=== PATIENT | male | born 1945 | race Caucasian/White ===

== ENCOUNTER 2020-12-24 10:05 | Outpatient (CLI) | payer MEDICARE, SELFPAY ==
--- NOTE | ~2020-12-24 | US_ITS ---
EXAMINATION: US aorta [facility] DATE: 12/24/2020 11:04 INDICATION: Abdominal aortic aneurysm screening. TECHNIQUE: Grayscale, color Doppler, and pulsed Doppler images of the aorta and common iliac arteries were obtained. COMPARISON: None. FINDINGS: The aorta is normal in caliber. The right common iliac artery is normal in caliber. The left common i liac artery is normal in caliber. IMPRESSION: 1. No abdominal aortic aneurysm. Reviewed, dictated and finalized at location B.
== END 2020-12-24 10:06 | disposition home or self-care (01) ==
PROVIDERS: PCP Internal Medicine; Visit Provider Internal Medicine
DX: Z87.891 Personal history of nicotine dependence (principal)
CPT/HCPCS: 76706

== ENCOUNTER 2021-01-25 18:17 | Emergency (ER) | payer MEDICARE, SELFPAY ==
--- NOTE | ~2021-01-25 | XR_ITS ---
EXAMINATION: XR knee RT min 4V DATE: 01/25/2021 18:38 INDICATION: Right knee pain TECHNIQUE: Four views of the right knee were obtained. COMPARISON: None. FINDINGS: Alignment is normal. No fracture or osteochondral lesion. There is mild tricompartmental os teoarthritis characterized by tiny marginal osteophytes. There is a moderate size knee joint effusion . Soft tissues are unremarkable. IMPRESSION: 1. Moderate size knee joint effusion. Reviewed, dictated and finalized at location A.
[2021-01-25 18:18] VITALS: BP 142/76; PULSE 80; RESP 20; TEMP 36.3; O2SAT 97
--- NOTE | 2021-01-25 18:31 | ED.GENADULT ---
HPI - General Adult General Chief complaint: Extremity Injury, Lower Stated complaint: right knee pain Time Seen by Provider: 01/25/21 18:24 Source: patient, family and RN notes reviewed Mode of arrival: ambulatory Limitations: no limitations History of Present Illness HPI narrative: Patient is 75-year-old male who presents to emergency department for evaluation of right knee pain and swelling that occurred over the last 3 days patient denies injury or trauma or similar occurrence in the past has been using crutches has not taken anything for his symptoms denies fever or other complaints Related Data Allergies Allergy/AdvReac Type Severity Reaction Status Date / Time No Known Allergies Allergy Verified 01/25/21 18:22 Review of Systems Review of Systems: All systems reviewed & are unremarkable except as noted in HPI and below PMFSH Past Medical History Medical History Alcohol dependence in controlled environment (~1953) Class 2 obesity with body mass index (BMI) of 36.0 to 36.9 in adult (~09/07/88) Hyperlipidemia LDL goal <100 (~04/2015) Hyperuricemia (~04/2015) Hypothyroidism (acquired) (~04/2015) Keratosis seborrheica (~09/2016) Knee osteoarthritis (~09/2017) Tobacco abuse, in remission (~1953) Surgical History Surgical History No history of previous surgery Family History Family History Father Cerebrovascular accident, Onset Age: 69 Alcoholism Skin cancer Sibling Alcoholism Skin cancer Hypertension Heart problem Unknown Lung cancer Thyroid disorder Social History Social History Smoking packs per day: 1 Smoking cigarettes per day: 20.0 Years smoked: 40 Smoking pack-years: 40.00 Second hand tobacco smoke exposure: No Smoking end date: 09/06/89 Alcohol intake: current Drinks per week: 30 Exam Narrative: Exam Narrative: GENERAL: Well-appearing, well-nourished, and in no acute distress. HEAD: Normocephalic, atraumatic. EYES: PERRLA and EOMI. ENT: Nares clear, no rhinorrhea or epistaxis. Mucous membranes moist. EXTREMITIES: Swelling and tenderness of the right knee joint along the anterior medial and posterior aspect no erythema or warmth to touch remainder of extremity nontender SKIN: Warm, dry, no rash. NEURO: No focal deficits. Alert and oriented x3. Neurovascularly intact. Capillary refill less than 2 seconds PSYCH: Normal mood and affect. Course Vital Signs Vital signs: Vital Signs Temperature 97.4 F L 01/25/21 18:18 Pulse Rate 80 01/25/21 18:18 Respiratory Rate 20 01/25/21 18:18 Blood Pressure 142/76 H 01/25/21 18:18 Pulse Oximetry 97 01/25/21 18:18 Temperature 97.4 F L 01/25/21 18:18 Pulse Rate 80 01/25/21 18:18 Respiratory Rate 20 01/25/21 18:18 Blood Pressure 142/76 H 01/25/21 18:18 Pulse Oximetry 97 01/25/21 18:18 Medical Decision Making MDM Narrative Medical decision making narrative: Patients injury or pain is consistent with musculoskeletal etiology. No signs of neurological or vascular compromise on exam. Compartments and tisues are soft without signs of compartment syndrome. Pain is felt appropriate for further evaluation on an outpatient basis. Vital Signs Vital Signs: Vital Signs Temperature 97.4 F L 01/25/21 18:18 Pulse Rate 80 01/25/21 18:18 Respiratory Rate 20 01/25/21 18:18 Blood Pressure 142/76 H 01/25/21 18:18 Pulse Oximetry 97 01/25/21 18:18 Temperature 97.4 F L 01/25/21 18:18 Pulse Rate 80 01/25/21 18:18 Respiratory Rate 20 01/25/21 18:18 Blood Pressure 142/76 H 01/25/21 18:18 Pulse Oximetry 97 01/25/21 18:18 Imaging Data Radiologist's impression: ITS Impressions Knee X-Ray 01/25/21 18:52 IMPRESSION: 1. Moderate size knee joint e
[2021-01-25 19:51] VITALS: BP 138/71; PULSE 72; RESP 18; O2SAT 97
== END 2021-01-25 19:51 | disposition home or self-care (01) ==
PROVIDERS: Emergency Provider Emergency Medicine; PCP Internal Medicine
DX: M25.561 Pain in right knee (principal); E78.5 Hyperlipidemia, unspecified; E03.9 Hypothyroidism, unspecified; E66.9 Obesity, unspecified; Z68.34 Body mass index [BMI] 34.0-34.9, adult; Z87.891 Personal history of nicotine dependence; M17.11 Unilateral primary osteoarthritis, right knee
CPT/HCPCS: 73564; 99283

== ENCOUNTER 2021-01-29 08:38 | Outpatient (CLI) | payer MEDICARE, SELFPAY ==
--- NOTE | 2021-02-12 15:08 | WPDHOMESLEEP ---
Sleep Study - Home Unattended Date of Study: 01/29/21 Ordering Provider: Deon Garcia MD Interpreting Provider: Berta Colón MD Home Sleep Study Type: Apnea Link Air Height: 2.03 m Weight: 104.326 kg Body Mass Index: 25.2 Neck Circumference (inches): 17 [place]: 10 Reason for Sleep Study non- restorative sleep, hypersomnia; Sleep History Sukh Liao is a 75 year old man with hypertension, impaired fasting glucose, hypothyroidism, gout and hyperlipidemia. He is a smoker. He has hypersomnia. His tells him that he snores and occasionally stops breathing at night. He is tired in the day and can easily fall asleep. For this reason, Dr. Garcia ordered for a home sleep test. The patient does not awaken from sleep feeling short of breath and does not awaken at night with heartburn, belching or coughing. He frequently snores. Rarely he snores loudly enough that others complain about it. He occasionally has trouble sleeping with a cold. He does not wake up gasping for breath at night, does not have breathing problems at night observed by others and does not sweat excessively at night. He does not notice his heart pounding or beating irregularly night. He occasionally falls asleep during the day, never falls asleep involuntarily and never falls asleep while driving. He does not fall asleep while exerting physical effort. He does not have loss of muscle tone was strong emotion. He does not have daytime difficulties due to excessive sleepiness. He does not feel paralyzed on waking or falling asleep. He occasionally has vivid dreamlike scenes upon awakening or falling asleep. He does not ever feel afraid to go to sleep. He occasionally has nightmares. He frequently remembers his dreams. He occasionally has racing thoughts. He does not feel sad or depressed. He occasionally has anxiety and occasionally has muscular tension. He does not notice parts of his body jerking. He rarely kicks at night. He frequently has crawling and aching feelings in his legs and frequently has leg pain during the night. He does not have morning jaw pain and does not grind his teeth during sleep. He occasionally is bothered by pain during the day. He rarely is awakened by pain at night. He rarely wakes up feeling stiff in the morning. He does not wake up with sore or achy muscles and does not wake up with pain in the neck and spine. He has insomnia. Normal bedtime is 10:00 p.m. falling asleep within 30 minutes, typically waking twice at night to urinate, returning to sleep within 15 minutes. He wakes the morning at 6:00 a.m.. His weekend schedule is the same. He estimates getting 6 hours of sleep at night. He takes naps in the afternoon or evening sometimes. Sometimes, a short nap is refreshing. He feels good most mornings. He feels better in the morning compared other times of day. Habits: Quit tobacco 25 years ago. Caffeine 2 cups of coffee per day. Alcohol 3 beers per day. No recreational drugs. [facility] Past Medical History Medical History (Updated 02/12/21 @ 15:29 by Berta Colón MD) Alcohol dependence in controlled environment (~1953) Class 2 obesity with body mass index (BMI) of 36.0 to 36.9 in adult (~09/07/88) Dyslipidemia Essential hypertension Hyperlipidemia LDL goal <100 (~04/2015) Hyperuricemia (~04/2015) Hypothyroidism (acquired) (~04/2015) Keratosis seborrheica (~09/2016) Knee osteoarthritis (~09/2017) Prediabetes (~04/2015) Tobacco abuse, in remission (~1953) Surgical History Surgical History No history of previous surgery Family History Family History Father Cerebrovascular accident, Onset Age: 69 Alcoholism Skin cancer Sibling Alcoholism Skin cancer Hypertension Heart problem Unknown Lung cancer Thyroid disorder Social History Social History (Reviewed 01/25/21 @ 18:32
[2021-02-12 15:32] VITALS: BMI 25.2
== END 2021-01-30 10:25 | disposition home or self-care (01) ==
LOC: ANHCSM 08:39
PROVIDERS: PCP Internal Medicine; Visit Provider Internal Medicine
DX: G47.33 Obstructive sleep apnea (adult) (pediatric) (principal)
CPT/HCPCS: 95806

== ENCOUNTER 2021-01-29 12:24 | Outpatient (NON) | payer MEDICARE, SELFPAY ==
[2021-01-29 14:32] LABS: Appearance Synovial Fluid Cloudy (Clear); Color Synovial Fluid Yellow (Colorless); Neutrophils Synovial Fluid 73 % (0-25); Nucleated Cell Synovial Fluid 4616 /uL (0-200); RBC Synovial Fluid 2601 /uL (0-0); Source Synovial Fluid Synovial fluid
[2021-01-29 14:33] LABS: Lymphocytes Synovial Fluid 21 %; Monocytes Synovial Fluid 6 %
== END 2021-01-29 12:25 | disposition home or self-care (01) ==
PROVIDERS: PCP Internal Medicine; Visit Provider Orthopaedic Surgery
DX: M25.561 Pain in right knee (principal)
CPT/HCPCS: 87070; 87075; 87205; 89051; 89060; 95806

== ENCOUNTER → 2021-02-04 11:02 | Outpatient (REF) | payer MEDICARE, SELFPAY | LOC: ANHLAB 11:02 | PROVIDERS: PCP Internal Medicine; Visit Provider Nurse Practitioner | DX: L98.9 Disorder of the skin and subcutaneous tissue, unspecified (principal) | CPT/HCPCS: 88305 ==

== ENCOUNTER → 2021-11-25 10:44 | Outpatient (CLI) | payer MEDICARE, SELFPAY ==
--- NOTE | ~2021-11-25 | XR_ITS ---
XR lumbar spine 6V w bending 11/25/2021 11:23 Indication: Low back pain Procedure: 7 views lumbar spine Comparison: No prior studies for comparison. Findings: There is disc narrowing at all lumbar levels except L3-4. There is lower lumbar facet hyper trophy. No acute fracture or traumatic malalignment. No significant alteration of alignment with flex ion/extension. Pedicles intact. Sacral foramen are symmetric. Impression: 1: Moderate lumbar spondylosis. Reviewed, dictated and finalized at location A. Impression: 1: Moderate lumbar spondylosis.
== END ==
PROVIDERS: Visit Provider Internal Medicine
DX: M54.30 Sciatica, unspecified side (principal); M47.816 Spondylosis without myelopathy or radiculopathy, lumbar region
CPT/HCPCS: 72114

== ENCOUNTER 2024-08-08 08:32 | Outpatient (CLI) | payer MEDICARE, SELFPAY ==
--- NOTE | 2024-08-08 09:13 | ECHO_ITS ---
Patient Info Name: Sukh Liao Age: 79 years : 1945 Gender: Male Ht: 68 in Wt: 205 lbs BSA: 2.14 m2 HR: 55 bpm BP: 149 / 81 mmHg Technical Quality: Good Exam Date: 08/08/2024 9:19 AM Exam Location: Echo Lab Patient Status: Outpatient Admit Date: 08/08/2024 Staff Ordering Physician: Aguilar Krishna MD Respiratory Therapy Aide: Kiet Attending Provider: Aguilar Krishna MD Referring Physician: Tomi KATE; Exam Type: CA echo doppler color flow Study Info Indications I10 - Essential (primary) hypertension Complete two-dimensional, color flow and Doppler transthoracic echocardiogram is performed. Summary 1. Complete two-dimensional, color flow and Doppler transthoracic echocardiogram is performed. 2. Left ventricular chamber dimension is normal. 3. Left ventricular systolic function is normal, estimated at 60-65%. 4. The left ventricular diastolic function is normal. 5. E/e' 9 is minimally elevated. 6. There is mild aortic valve sclerosis. 7. There is trace aortic valve regurgitation. 8. There is trace tricuspid valve regurgitation. 9. No pulmonary hypertension, estimated pulmonary arterial systolic pressure is 20 mmHg. Left Ventricle E/e' 9 is minimally elevated. Left ventricular chamber dimension is normal. Left ventricular systolic function is normal, estimated at 60-65%. The left ventricular diastolic function is normal. Right Ventricle Right ventricular systolic function is normal and with normal TAPSE 1.8 cm. Right ventricular chamber dimension is normal. Left Atria Left atrial chamber dimension is normal. Right Atria Right atrial chamber dimension is normal. Aortic Valve The aortic valve is trileaflet. There is mild aortic valve sclerosis. There is no aortic valve stenosis. There is trace aortic valve regurgitation. Pulmonic Valve There is no pulmonic regurgitation. Mitral Valve There is no mitral valve stenosis. There is no mitral valve regurgitation. Tricuspid Valve There is trace tricuspid valve regurgitation. No pulmonary hypertension, estimated pulmonary arterial systolic pressure is 20 mmHg. Pericardium/Pleural There is no pericardial effusion. Inferior Vena Cava Normal inferior vena cava with >50% collapse upon inspiration consistent with normal right atrial pressure, 5 mmHg. Aorta The aortic root size at the sinus of Valsalva is normal. Left Ventricular Outflow Tract Name Value Normal LVOT 2D LVOT Diameter 2.0 cm LVOT Doppler LVOT Peak Gradient 5 mmHg LVOT Mean Gradient 2 mmHg LVOT VTI 26 cm LVOT VTI/AV VTI Ratio 0.9 LVOT Stroke Volume 79 ml LVOT CO 4.2 l/min LVOT CI 2.0 l/min/m2 Pulmonic Valve Name Value Normal PV Doppler PV Peak Gradient 4 mmHg Mitral Valve Name Value Normal MV Doppler MV Decel [place] 264 cm/s2 MV PHT 92 ms MV Area (PHT) 2.4 cm2 4.0-5.0 MV Diastolic Function MV E Peak Velocity 84 cm/s MV A Peak Velocity 76 cm/s MV E/A 1.1 MV Decel Time 318 ms Tricuspid Valve Name Value Normal TV Regurgitation Doppler TR Peak Velocity 197 cm/s TR Peak Gradient 15 mmHg Estimated PAP/RSVP RA Pressure 5 mmHg <=5 PA Systolic Pressure 20 mmHg <36 RV Systolic Pressure 20 mmHg <36 Aorta Name Value Normal Ascending Aorta Ao Root Diameter (MM) 3.3 cm Ao Root Diam Index (MM) 1.5 cm/m2 Aortic Valve Name Value Normal AV Doppler AV Peak Velocity 135 cm/s AV Peak Gradient 7 mmHg AV Mean Gradient 4 mmHg AV VTI 30 cm AV Area (Cont Eq VTI) 2.6 cm2 >=3.0 AV Area (Cont Eq [place]) 2.5 cm2 AV Regurgitation 2D LVOT Area 3.0 cm2 Ventricles Name Value Normal LV Dimensions 2D/MM IVS Diastolic Thickness (2D) 0.8 cm 0.6-1.0 IVS Diastole Thickness (MM) 0.9 cm 0.6-1.0 LVID Diastole (2D) 5.4 cm 4.2-5.8 LVID Diastole (MM) 5.3 cm 4.2-5.8 LVIW Diastolic Thickness (2D) 0.8 cm 0.6-1.0 LVIW Diastolic Thickness (MM) 0.8 cm 0.6-1.0 LVID Systole (2D) 3.5 cm 2.5-4.0 LVID Systole (MM) 3.1 cm 2.5-4.0 LVOT Diameter 2.0 cm LV Mass (2D Cubed) 155.19 g 88.00-224.00 LV Mass Index (2D Cubed) 73 g/m2 49-115 Relative Wall Thickness (2D) 0.29 LV Mass (MM Cubed) 169.96 g 88.00-224.00 LV Mass Index (MM Cubed) 79 g/m2 49-115 Relative Wall Thickness (MM) 0.32 LV Fractional Shortening/Ejection Fraction 2D/MM LV Fractional Shortening (2D) 36 % 25-43 LV Fractional Shortening (MM) 41 % 25-43 LV EF (MM Teicholz) 71 % 52-72 LV EF (2D Teicholz) 65 % 52-72 LV Diastolic Volume (4C MOD) 80 ml LV EF (4C MOD) 71 % LV Diastolic Volume (2C MOD) 56 ml LV EF (2C MOD) 62 % LV Diastolic Volume (BP MOD) 68 ml 62-150 LV Diastolic Volume Index (BP MOD) 32 ml/m2 34-74 LV Systolic Volume (BP MOD) 23 ml 21-61 LV Systolic Volume Index (BP MOD) 11 ml/m2 11-31 LV EF (BP MOD) 67 % 52-72 LV Diastolic Length (4C) 8.0 cm LV Systolic Length (4C) 6.2 cm LV Stroke Volume (4C MOD) 57 ml Atria Name Value Normal LA Dimensions LA Dimension (MM) 4.3 cm 3.0-4.1 LA Volume (4C A-L) 31 ml LA Volume (BP A-L) 46 ml RA Dimensions RA Area (4C) 17.4 cm2 <=18.0 Report Signatures
== END 2024-08-08 08:33 | disposition home or self-care (01) ==
PROVIDERS: PCP Family Medicine; Visit Provider Family Medicine
DX: E11.9 Type 2 diabetes mellitus without complications (principal); E66.9 Obesity, unspecified; G47.33 Obstructive sleep apnea (adult) (pediatric); I10 Essential (primary) hypertension; R01.1 Cardiac murmur, unspecified; R79.89 Other specified abnormal findings of blood chemistry; Z00.00 Encounter for general adult medical examination without abnormal findings; Z68.36 Body mass index [BMI] 36.0-36.9, adult
CPT/HCPCS: 93306

== ENCOUNTER 2025-04-09 00:47 | Day surgery (SDC) | payer MEDICARE, SELFPAY ==
[2025-03-26 09:47] VITALS: BMI 32.0
--- OUTSIDE RECORDS SUMMARY | 2025-04-09 00:50 | XMS_ITS | Clinical Summary ---
Author Organization [facility] Address [address] [place] [address] Care Team Providers Care Sales Ledger Administrator Name Role Phone Unavailable Primary Care Provider Unavailabl e Source Comments [facility],non-owned Affiliates and Associated Physician Practices is amultiple site organization consisting of ambulatory clinics and hospital sitesin [place], [place], [place] and [place]. This disclosure is being madepursuant to the Care Everywhere program and may not contain all information available regarding this patient. Last updated 18.[facility] Allergies No known active allergies Medications * Be aware that medications may not be up to date on this document. Alwaysverify current medications with the patient. simvastatin (ZOCOR) 40 MG tabletIndication s:HLD (hyperlipidemia) Take 1 Tab by mouth at bedtime. 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 Gender Identity Not on file Sexual Orientation Not on file Last Filed Vital Signs Vital Sign Reading Time Taken Comments Blood Pressure 144/80 02/25/2011 9:05 AM CDT Pulse 64 02/25/2011 9:05 AM CDT Temperature - - Respiratory Rate 12 02/25/2011 9:05 AM CDT Oxygen Saturation - - Inhaled Oxygen Concentration - - Weight 106.1 kg (233 lb 12.8 oz) 02/25/2011 9:05 AM CDT Height 172.7 cm (5' 8) 02/25/2011 9:05 AM CDT Body Mass Index 35.55 02/25/2011 9:05 AM CDT Plan of Treatment Health Maintenance Due Date Last Done Comments DTAP/TDAP/TD VACCINES (1 - Tdap) 1963 PNEUMOCOCCAL VACCINE 50+ (1 of 1 - PCV) 1994 ZOSTER VACCINE (1 of 2) 1994 Respiratory Syncytial Virus (RSV) Vaccine Pt: or over 60 yrs (1 - 1-dose 75+ series) 2019 COVID-19 VACCINE (2023-2 5 season) 2024 DEPRESSION SCREENING 09/06/2024 INFLUENZA VACCINE (#1) 2025 HEPATITIS B VACCINE Aged Out No longe r eligible based on patient's age to complete this topic HIB VACCINE Aged Out No longer eligi ble based on patient's age to complete this topic HPV VACCINE Aged Out No longer eligi ble based on patient's age to complete this topic MENINGOCOCCAL (Group B) VACC INE SHARED DECISION-MAKING Aged Out No longer eligibl e based on patient's age to complete this topic MENINGOCOCCAL GROUPS A/C/Y/W VACCINE Aged Out No longer eligible b ased on patient's age to complete this topic
--- NOTE | 2025-04-09 07:20 | WPDANESEPPF ---
Anes - Initial Pre Proc Eval Procedure: Operation Date: 04/09/25 09:00 Proposed Procedures p Diagnostic Colonoscopy - Sanjay Vidal MD Date/Time: 04/09/25 07:20 Surgeon: Sanjay Vidal MD Pre Op Diagnosis: Other fecal abnormalities Patient Data Age: 79 Gender: M Height: 1.73 m Weight: 95.5 kg Allergies Allergy/AdvReac Type Severity Reaction Status Date / Time No Known Allergies Allergy Verified 04/09/25 07:48 Home Medications ?Medication ?Instructions ?Recorded ?Confirmed ?Type levothyroxine 75 mcg tablet 75 mcg PO DAILY #90 tabs 08/18/24 04/09/25 Rx rosuvastatin 20 mg tablet See Rx Instructions .Route 12/11/24 04/09/25 Rx .COMPLEX #90 tabs cetirizine 10 mg tablet (24Hour 10 mg PO DAILY 03/26/25 03/26/25 History Allergy) [id number]-yhsvusjq-gcgmri tablet 1 tablet PO DAILY 03/26/25 04/09/25 History vitamin E (dl, acetate) 45 mg (100 45 mg PO DAILY 03/26/25 04/09/25 History unit) capsule Patient hx anesthesia problems: none Family hx anesthesia problems: none Results Review: All pre-operative results and documents have been reviewed as part of the pre-operative evaluation. [facility] Past Medical History Medical History Actinic keratosis Essential hypertension Dyslipidemia Alcohol dependence in controlled environment (~1953) Keratosis seborrheica (~09/2016) Tobacco abuse, in remission (~1953) Knee osteoarthritis (~09/2017) Hyperuricemia (~04/2015) Hypothyroidism (acquired) (~04/2015) Hyperlipidemia LDL goal <100 (~04/2015) Class 2 obesity with body mass index (BMI) of 36.0 to 36.9 in adult (~09/07/88) Prediabetes (~04/2015) Surgical History Surgical History No history of previous surgery Family History Family History Father Cerebrovascular accident, Onset Age: 69 Alcoholism Skin cancer Sibling Alcoholism Skin cancer Hypertension Heart problem Unknown Lung cancer Thyroid disorder Social History Social History Smoking packs per day: 1 Smoking cigarettes per day: 20.0 Years smoked: 40 Smoking pack-years: 40.00 Smoking status: Unknown if ever smoked Tobacco type: cigarettes Second hand tobacco smoke exposure: No Smoking end date: 09/06/89 Alcohol intake: current Drinks per week: 30 Alcohol use details: Beer Substance use: never Substance use type: does not use Lack of Transportation: No Lack of Food: Sometimes True Current Housing: I Have Housing Concerned About Future Housing: No Difficulty Paying Gas/Electric Bills: No Difficulty Paying for Meds: No Currently Unemployed: No Education: High School Diploma/GED Difficulty w/ Childcare or Family Care: No Living arrangements: alone Additional living arrangements comments: . this past year from COVID-19 Occupation/Education: retired Spiritual care concerns: No Anes - Eval Final PreProcedure Day of Procedure 04/09/25 07:20 Patient weight: obese Heart: regular rate and rhythm Lungs: clear to auscultation Airway: Mallampati scale class II Neurological: alert and oriented Last oral intake: >/= 8 hours ASA classification: III Emergent: no Anesthetic plan: proceed Anesthesia type and monitoring: general GIVS and standard monitoring Results Review: All pre-operative results and documents have been reviewed as part of the pre-operative evaluation. Informed Consent: The patient's anesthetic plan and its attendant risks and benefits were discussed with the patient/family/POA. Questions were solicited and answers provided to the satisfaction of the patient/family/POA.
[2025-04-09 07:49] VITALS: BP 139/75; PULSE 61; RESP 16; TEMP 36.4; O2SAT 98; BMI 33.1
[2025-04-09] MEDS: LACTATED RINGERS 1,000 ML 150 ML IV CONT (07:58)
--- NOTE | 2025-04-09 08:43 | PM.IMHP ---
H&P: HPI History of Present Illness Date/Time: 04/09/25 08:44 Chief Complaint: Positive Cologuard test Narrative: patient referred for colonoscopy after finding a Cologuard positive test. His last colonoscopy was more than 10 years ago. There is no family history of colorectal cancer. Review of Systems Review of Systems: All systems reviewed & are unremarkable except as noted in HPI and below PMFSH Past Medical History Medical History Actinic keratosis Essential hypertension Dyslipidemia Alcohol dependence in controlled environment (~1953) Keratosis seborrheica (~09/2016) Tobacco abuse, in remission (~1953) Knee osteoarthritis (~09/2017) Hyperuricemia (~04/2015) Hypothyroidism (acquired) (~04/2015) Hyperlipidemia LDL goal <100 (~04/2015) Class 2 obesity with body mass index (BMI) of 36.0 to 36.9 in adult (~09/07/88) Prediabetes (~04/2015) Surgical History Surgical History No history of previous surgery Family History Family History Father Cerebrovascular accident, Onset Age: 69 Alcoholism Skin cancer Sibling Alcoholism Skin cancer Hypertension Heart problem Unknown Lung cancer Thyroid disorder Social History Social History Smoking packs per day: 1 Smoking cigarettes per day: 20.0 Years smoked: 40 Smoking pack-years: 40.00 Smoking status: Unknown if ever smoked Tobacco type: cigarettes Second hand tobacco smoke exposure: No Smoking end date: 09/06/89 Alcohol intake: current Drinks per week: 30 Alcohol use details: Beer Substance use: never Substance use type: does not use Lack of Transportation: No Lack of Food: Sometimes True Current Housing: I Have Housing Concerned About Future Housing: No Difficulty Paying Gas/Electric Bills: No Difficulty Paying for Meds: No Currently Unemployed: No Education: High School Diploma/GED Difficulty w/ Childcare or Family Care: No Living arrangements: alone Additional living arrangements comments: . this past year from COVID-19 Occupation/Education: retired Spiritual care concerns: No Meds Home Medications and Allergies Home Medications ?Medication ?Instructions ?Recorded ?Confirmed ?Type levothyroxine 75 mcg tablet 75 mcg PO DAILY #90 tabs 08/18/24 04/09/25 Rx rosuvastatin 20 mg tablet See Rx Instructions .Route 12/11/24 04/09/25 Rx .COMPLEX #90 tabs cetirizine 10 mg tablet (24Hour 10 mg PO DAILY 03/26/25 03/26/25 History Allergy) [id number] tablet 1 tablet PO DAILY 03/26/25 04/09/25 History vitamin E (dl, acetate) 45 mg (100 45 mg PO DAILY 03/26/25 04/09/25 History unit) capsule Allergies Allergy/AdvReac Type Severity Reaction Status Date / Time No Known Allergies Allergy Verified 04/09/25 07:48 Vital Signs Vital Signs - 24 hr 04/09/25 07:49 Temperature 97.6 F Pulse Rate 61 Respiratory Rate 16 Blood Pressure 139/75 Pulse Oximetry 98 Oxygen Delivery Room Air Exam Const: General: cooperative and healthy appearing Resp: Effort & Inspection: normal respiratory effort and able to speak in complete sentences Auscultation: clear to auscultation bilaterally Cardio: Rate: regular rate Rhythm: regular rhythm GI: Inspection: normal to inspection GI Palp: No No hepatosplenomegaly present Auscultation: normal bowel sounds Rectal Exam: deferred Skin: General skin exam: normal color Psych: Appearance: grossly normal Mental Status: mental status grossly normal Assessment and Plan Assessment and plan (1) Positive colorectal cancer screening using Cologuard test: Code(s): R19.5 - Other fecal abnormalities Status: Acute Assessment and Plan: The patient is deemed a good candidate for the procedure. Consent signed. Will proceed.
[2025-04-09] MEDS: SIMETHICONE ORAL SUSPENSION 20 MG/0.3 ML 30 ML BOTTLE 0.6 ML IRRIGATION (09:04)
--- NOTE | 2025-04-09 09:13 | S_PTH ---
PATIENT: Sukh Liao LOC: [facility] U#:[id number] AGE/SX: 79/M ROOM: RE04/09/[address]: Sanjay Vidal MD : 1945 BED: DIS: 04/09/2025 SPEC #: [id number] RECD: 04/09/25 10:46 STATUS: JUAN REQ #: [id number] KAEL: 04/09/25 09:[address]: Sanjay Vidal DEPT: [facility] Surgical RECD BY: Meenu Amaya ENTERED: 04/09/25 10:46 SP TYPE: Surgical OTHR DR: Aguilar Krishna MD Tissues: A - Colon Polypectomy Procedures: Hematoxylin and Eosin Stain Gross and Microscopic Level 4
--- NOTE | 2025-04-09 09:14 | SUR.OPER ---
Ascending colon polyp not retrieved, Dr. Vidal aware.
[2025-04-09 09:15] VITALS: BP 103/58; PULSE 60; RESP 16; O2SAT 97
[2025-04-09 09:25] VITALS: BP 107/63; PULSE 60; RESP 18; O2SAT 98
[2025-04-09 09:35] VITALS: BP 130/71; PULSE 56; RESP 18; O2SAT 97
== END 2025-04-09 09:41 | disposition home or self-care (01) ==
PROVIDERS: PCP Family Medicine; Referring Provider Family Medicine; Visit Provider Internal Medicine Gastroenterology
PROC: 0DJD8ZZ Inspection of Lower Intestinal Tract, Via Natural or Artificial Opening Endoscopic (ICD-10-PCS; CPT 45378; principal; 2025-04-09 09:00)
DX: D12.3 Benign neoplasm of transverse colon (principal); K64.8 Other hemorrhoids; K57.30 Diverticulosis of large intestine without perforation or abscess without bleeding; E78.5 Hyperlipidemia, unspecified; I10 Essential (primary) hypertension; E03.9 Hypothyroidism, unspecified; R73.03 Prediabetes; E79.0 Hyperuricemia without signs of inflammatory arthritis and tophaceous disease; L57.0 Actinic keratosis; L82.1 Other seborrheic keratosis; M17.10 Unilateral primary osteoarthritis, unspecified knee; E66.9 Obesity, unspecified; Z68.33 Body mass index [BMI] 33.0-33.9, adult; Z84.0 Family history of diseases of the skin and subcutaneous tissue; Z80.1 Family history of malignant neoplasm of trachea, bronchus and lung; Z82.49 Family history of ischemic heart disease and other diseases of the circulatory system
CPT/HCPCS: 45385; 88305; J2003; J2704; J7120